=== PATIENT | female | born 1965 | race Caucasian/White ===

== ENCOUNTER 2016-11-20 16:13 | Emergency (ER) | payer OTHER ==
[~2016-11-20] VITALS: Ht 175.3 cm; Wt 96.6 kg
[~2016-11-20 16:13] MED LIST: CANA100T PO; CRESTOR10 MG PO; FURO-69 PO; GABA-587 PO; HYDR-971 PO; INSU100I13 SUBCUT; LIRA0.6P2 SQ; METF500T4 PO; OLME1TAB25 PO; PHEN37.53 PO
--- NOTE | 2016-11-20 17:48 | PHYS DOC ---
Past History Past Medical History: Diabetes, Hypertension, Hypothyroid Past Surgical History: , Tonsillectomy, Other Alcohol Use: Rarely Drug Use: None Adult General Chief Complaint Chief Complaint: FLANK PAIN HPI HPI Patient is a 51 year old F who presents with with right-sided flank pain over the past 2 weeks. She describes her pain as sharp intermittent and radiating towards the front. She was seen by her doctor recently and treated for muscle spasm with muscle relaxers. She feels that these medications have not helped her symptoms and she is concerned that something else may be going on. She denies any other associated symptoms. She denies any exacerbating or alleviating factors. Review of Systems Review of Systems Constitutional: Denies fever or chills [] Eyes: Denies change in visual acuity, redness, or eye pain [] HENT: Denies nasal congestion or sore throat [] Respiratory: Denies cough or shortness of breath [] Cardiovascular: No additional information not addressed in HPI [] GI: Denies abdominal pain, nausea, vomiting, bloody stools or diarrhea [] : Denies dysuria or hematuria [] Musculoskeletal: Denies joint pain [] Integument: Denies rash or skin lesions [] Neurologic: Denies headache, focal weakness or sensory changes [] Endocrine: Denies polyuria or polydipsia [] Family History Family History Noncontributory Current Medications Current Medications Medications reviewed Allergies Allergies Allergies Coded Allergies Type Severity Reaction Last Updated Verified vancomycin Adverse Reaction Intermediate "RED MAN SYNDROME" 06/06/14 Yes Physical Exam Physical Exam Constitutional: Well developed, well nourished, no acute distress, non-toxic appearance. [] HENT: Normocephalic, atraumatic, Eyes: PERRLA, EOMI, conjunctiva normal, no discharge. [] Neck: Normal range of motion, no tenderness, supple, no stridor. [] Cardiovascular:Heart rate regular rhythm, Lungs & Thorax: Bilateral breath sounds clear to auscultation [] Abdomen: Bowel sounds normal, soft, no tenderness, no masses, no pulsatile masses. [] Skin: Warm, dry, no erythema, no rash. [] Back: Right-sided paraspinal muscle tenderness. Extremities: No tenderness, no cyanosis, no clubbing, ROM intact, no edema. [] Neurologic: Alert and oriented X 3, normal motor function, normal sensory function, no focal deficits noted. [] Psychologic: Affect normal, judgement normal, mood normal. [] Current Patient Data Vital Signs Vital Signs Date Time Temp Pulse Resp B/P (MAP) Pulse Ox O2 Delivery O2 Flow Rate FiO2 11/20/16 16:35 98.1 85 12 96 Room Air EKG EKG [] Radiology/Procedures Radiology/Procedures [] Course & Med Decision Making Course & Med Decision Making Pertinent Labs and Imaging studies reviewed. (See chart for details) Care was transferred to Dr. Ga pending labs and imaging results. Her symptoms were most consistent with muscle spasm. Dragon Disclaimer Dragon Disclaimer This chart was dictated in whole or in part using Voice Recognition software in a busy, high-work load, and often noisy Emergency Department environment. It may contain unintended and wholly unrecognized errors or omissions. Departure Departure: Referrals: ROMEO ARORA (PCP) ANNEL LAWSON MD Nov 20, 2016 17:48
[2016-11-20] MEDS ORDERED: KETOROLAC 15 MG/ML VIAL. IV ONE (18:00)
[2016-11-20] MEDS ORDERED: IV NORMAL SALINE 1,000ML 1,000 ML IV ONE (18:00)
[2016-11-20 18:47] LABS: CALCIUM 9.6 mg/dL (8.5-10.1); CREATININE 1.3 mg/dL (0.6-1.0); GFR 43.5; POTASSIUM 4.4 mmol/L (3.5-5.1)
[2016-11-20 18:50] LABS: BASO # 0.1 x10^3/uL (0.0-0.2); BASO % 1 % (0-3); EOS # 0.1 x10^3/uL (0.0-0.7); EOS % 1 % (0-3); HEMATOCRIT 40.1 % (36.0-47.0); HEMOGLOBIN 13.4 g/dL (12.0-15.5); LYMPH # 3.1 x10^3/uL (1.0-4.8); LYMPH % 31 % (24-48); MEAN CORPUSCULAR HEMOGLOBIN 32 pg (25-35); MEAN CORPUSCULAR HGB CONC 34 g/dL (31-37); MEAN CORPUSCULAR VOLUME 96 fL (79-100); MONO # 0.6 x10^3/uL (0.0-1.1); MONO % 6 % (0-9); NEUT # 6.1 x10^3uL (1.8-7.7); NEUT % 60 % (31-73); PLATELET COUNT 261 x10^3/uL (140-400); RED BLOOD COUNT 4.18 x10^6/uL (3.50-5.40); RED CELL DISTRIBUTION WIDTH 13.6 % (11.5-14.5); WHITE BLOOD COUNT 10.1 x10^3/uL (4.0-11.0)
[2016-11-20 19:09] LABS: BACTERIA,URINE 0 /HPF (0-FEW); BILIRUBIN,URINE NEG (NEG); CLARITY,URINE CLEAR; COLOR,URINE YELLOW; GLUCOSE,URINE >=1000 mg/dL (NEG); NITRITE,URINE NEG (NEG); SQUAMOUS EPITHELIAL CELL,UR MANY /LPF; UROBILINOGEN,URINE 0.2 mg/dL (0.2 mg/dL)
--- NOTE | 2016-11-20 19:45 | RAD ---
History: Severe right flank and back pain beginning today. Comparison: None. Technique: CT of the abdomen and pelvis was performed without intravenous or oral contrast. Exposure: One or more of the following individualized dose reduction techniques were utilized for this examination: 1. Automated exposure control 2. Adjustment of the mA and/or kV according to patient size 3. Use of iterative reconstruction technique Findings: Evaluation of solid organs is limited by lack of intravenous contrast. Evaluation of enteric structures may be limited by lack of oral contrast. Fatty liver disease is seen. Calcified splenic granulomata are present. Pancreas, gallbladder, and bilateral adrenal glands are unremarkable. Bilateral kidneys and ureters are free of stone or obstruction. Both kidneys demonstrate nonspecific perinephric stranding. Aortic atherosclerosis is present. No bowel obstruction or inflammation is identified. The colon is redundant. A moderate to large amount of colonic stool is present. Urinary bladder is unremarkable. Uterus and adnexa have unremarkable CT appearance. No free air or free fluid is seen in the abdomen or pelvis. Impression: 1. No acute abnormality identified in the abdomen or pelvis. No evidence of urinary stone. 2. Moderate to large amount of colonic stool. Electronically signed by: Temo Moreno MD (11/20/2016 7:42 PM) [facility]
[2016-11-20 20:17] VITALS: BP 116/76
== END 2016-11-20 20:22 | disposition home or self-care (01) ==
LOC: ER 16:13
DX: M54.89 Other dorsalgia (principal); R10.9 Unspecified abdominal pain; I10 Essential (primary) hypertension; E11.9 Type 2 diabetes mellitus without complications; E03.9 Hypothyroidism, unspecified; Z98.890 Other specified postprocedural states; Z88.1 Allergy status to other antibiotic agents
CPT/HCPCS: 36415; 74176; 80048; 81001; 85025; 96361; 96374; 99285; J1885; J7030

== ENCOUNTER → 2019-01-01 | Outpatient (CLI) | payer OTHER ==
[~2019-01-01] MED LIST changes: +HYDR-3165 PO; -HYDR-971 PO; +METF500T16 PO; -METF500T4 PO
--- NOTE | 2019-01-01 19:11 | RAD ---
3d digital tomography Bilateral History: Routine screening Technique: Bilateral 3d digital tomographic views were obtained and reviewed on a workstation. In addition, CAD - computer aided detection was utilized. Comparison: Most recently on 04/30/2014. Findings: Breast Tissue Density B : The breast tissue is composed of mixed fatty and fibroglandular tissue. No newly seen mass, architectural distortion or suspicious microcalcifications throughout either breast. A well-circumscribed mass within the posterior aspect of the right breast at the nipple line appears slightly larger on the CC view relative to the prior however this appears secondary to superimposition of two smaller masses when correlating with tomosynthesis, both of which were present previously. Impression: No findings concerning for malignancy bilaterally. No significant interval change. BI-RADS Category 2: Benign. Normal interval followup. A mammogram does not have 100% sensitivity and therefore a negative imaging study should not delay further work up of a suspicious abnormality. Patient information is entered into the system with a target due date for the next screening mammogram. The patient will receive a reminder. "Our facility is accredited by the [employer] Mammography Program."
== END | disposition home or self-care (01) ==
LOC: MAMMO 08:19
PROVIDERS: ATTEND Physician Assistant
DX: Z12.31 Encounter for screening mammogram for malignant neoplasm of breast (principal); N63.10 Unspecified lump in the right breast, unspecified quadrant
CPT/HCPCS: 77063; 77067

== ENCOUNTER → 2019-02-01 | Outpatient (CLI) | payer OTHER ==
--- NOTE | 2019-02-01 11:14 | RAD ---
Examination: 3 views of the bilateral knees HISTORY: History of bilateral knee pain COMPARISON: None available. FINDINGS: The alignment of the knee joint grossly appears unremarkable. There is mild joint space loss identified in the medial compartment of the bilateral knees. There is no acute fracture or dislocation. IMPRESSION: No acute osseous findings. Electronically signed by: Yuriy Raphael MD (02/01/2019 11:11 AM) [facility]
== END | disposition home or self-care (01) ==
LOC: RAD 08:53
PROVIDERS: ATTEND Physician Assistant
DX: M25.561 Pain in right knee (principal); M25.562 Pain in left knee
CPT/HCPCS: 73562